=== PATIENT | male | born 1965 | race Caucasian/White ===

== ENCOUNTER 2024-11-13 07:47 | Day surgery (SDC) | payer BC ==
[~2024-11-13 07:47] MED LIST: Sodium Chloride 0.9% 10 ML Syringe FLUSH PRN
[2024-11-13] MEDS: Lactated Ringers 1,000 ML IV SCH (08:12)
[2024-11-13] MEDS ORDERED: Midazolam 1 MG/ML 2 ML SDV ONE (08:48)
[2024-11-13] MEDS ORDERED: Propofol 200 MG/20 ML SDV ONE ×2 (08:48→09:25)
[2024-11-13] MEDS ORDERED: Lactated Ringers 1,000 ML ONE (09:26)
[2024-11-13 11:17] VITALS: BP 139/69; PULSE 67
== END 2024-11-13 10:56 | disposition home or self-care (01) ==
LOC: KA.SDS 07:47
PROVIDERS: ATTEND Family Medicine
DX: Z12.11 Encounter for screening for malignant neoplasm of colon (principal); D12.4 Benign neoplasm of descending colon; K63.5 Polyp of colon; K62.89 Other specified diseases of anus and rectum; K57.30 Diverticulosis of large intestine without perforation or abscess without bleeding
CPT/HCPCS: 00811; 88305; J2250; J2704; J7120